=== PATIENT | male | born 1955 | race Caucasian/White ===

== ENCOUNTER 2016-11-16 08:32 | Emergency (ER) | payer OTHER ==
[~2016-11-16] VITALS: Ht 180.3 cm; Wt 71.9 kg
[~2016-11-16 08:32] MED LIST: ACTOS30 MG PO; CREON 61 CAPSULE PO; MULTIVITAMIN1 EAC2 PO; NEURONTIN600 M1 PO; NEXIUM20 MG PO
[2016-11-16 09:37] LABS: HEMATOCRIT 45.3 % (38.0-50.0); MCH 30.4 PG (29.0-34.0); MCHC 32.9 G/DL (30.0-36.0); MCV 92.4 FL (86-99); MEAN PLAT.VOLUME 10.8 uM^3 (9.0-12.4); PLATELET COUNT 89 K/uL (156-360); RBC DIS.WIDTH-SD 45.8 % (39-53); WHITE BLOOD COUNT 7.2 K/uL (4.1-10.2)
[2016-11-16 09:48] LABS: CHLORIDE 104 mEq/L (99-109); POTASSIUM 4.8 mEq/L (3.7-5.4); SODIUM 141 mEq/L (136-147)
[2016-11-16 09:49] LABS: GLUCOSE 100 mg/dL (70-99)
[2016-11-16 09:51] LABS: ANION GAP 10 MEQ/L (2-14)
[2016-11-16 09:53] LABS: GFR ESTIMATE (CALCULATED) 55 mL/min/
[2016-11-16 09:54] LABS: UREA NITROGEN (BUN) 28 mg/dL (9-23)
[2016-11-16 13:10] LABS: ADD MIUA? NO; BILIRUBIN NEGATIVE; BLOOD NEGATIVE; COLOR YELLOW ((YELLOW)); GLUCOSE (STRIP) NEGATIVE; KETONES NEGATIVE; LEUKOCYTES NEGATIVE; NITRITE NEGATIVE; PROTEIN (STRIP) NEGATIVE; SPECIFIC GRAVITY 1.013 (1.000-1.030); UCUL ADDED? NO; UROBILINOGEN 0.2 MG/DL (0.2-1.0)
[2016-11-16] MEDS ORDERED: LORTAB 5-325 M1 EACH PO (14:29)
[2016-11-16 14:35] VITALS: BP 156/87
== END 2016-11-16 14:35 | disposition home or self-care (01) ==
LOC: EME 08:32
DX: R10.9 Unspecified abdominal pain (principal); M54.5 Low back pain; Z94.81 Bone marrow transplant status; C93.10 Chronic myelomonocytic leukemia not having achieved remission; E11.9 Type 2 diabetes mellitus without complications
CPT/HCPCS: 76770; 80048; 81003; 85027; 99281; 99284